=== PATIENT | female | born 1990 | race Asian ===

== ENCOUNTER → 2024-09-10 10:04 | Outpatient (REF) | payer OTHER, SELFPAY | LOC: PNTC 10:04 | PROVIDERS: ATTENDING PHYSICIAN Obstetrics & Gynecology | DX: Z31.83 Encounter for assisted reproductive fertility procedure cycle (principal) | CPT/HCPCS: 59025 ==

== ENCOUNTER 2024-09-14 18:30 | Inpatient (IN) | payer OTHER, SELFPAY ==
[2024-09-14 18:38] VITALS: BP 138/82; BMI 29.1
[2024-09-14 19:16] LABS: Hematocrit 36.8 % (37.0-47.0); Hemoglobin 12.4 g/dL (12.0-16.0); Mean Corp Hgb Conc. 33.7 g/dL (33.0-37.0); Mean Corpuscular Hgb 28.7 pg (27.0-31.0); Mean Corpuscular Volume 85.2 fL (81.0-99.0); Mean Platelet Volume 10.6 fL (7.4-10.4); Platelet Count 264 10^3/uL (130-400); Red Blood Cell Count 4.32 10^6/uL (4.20-5.40); Red Cell Dist. Width 14.6 % (11.5-14.5); White Blood Cell Count 8.1 10^3/uL (4.8-10.8)
[2024-09-14] MEDS: ZITHROMAX INFUSION 250 IV (19:39)
[2024-09-14] MEDS: ANCEF 10 IV (19:39)
[2024-09-14] MEDS: BICITRA 30 ML PO (19:39)
[2024-09-14] MEDS: LR 1000 IV (19:39)
[2024-09-14] MEDS: TYLENOL 1000 MG PO (19:39)
[2024-09-14] MEDS: TORADOL 15 MG IV (22:52)
[2024-09-15] MEDS: TORADOL 15 MG IV ×4 (04:55→23:13)
[2024-09-15 05:19] LABS: Hematocrit 35.7 % (37.0-47.0); Hemoglobin 11.8 g/dL (12.0-16.0); Mean Corp Hgb Conc. 33.1 g/dL (33.0-37.0); Mean Corpuscular Hgb 28.9 pg (27.0-31.0); Mean Corpuscular Volume 87.5 fL (81.0-99.0); Mean Platelet Volume 10.6 fL (7.4-10.4); Platelet Count 234 10^3/uL (130-400); Red Blood Cell Count 4.08 10^6/uL (4.20-5.40); Red Cell Dist. Width 14.6 % (11.5-14.5); White Blood Cell Count 13.4 10^3/uL (4.8-10.8)
[2024-09-15] MEDS: PRENATAL PLUS 1 TABLET PO (08:46)
--- NOTE | 2024-09-15 15:01 | W.PN.ANS.POP ---
Anesthesia Post Operative
- Anesthesia Post Op Note
Vital Signs Stable-See Nursing Note: Yes
Airway Patent: Yes
Adequate Pain Control: Yes
Change in Mental Status: No
Current Postoperative Nausea & Vomiting: No
Anesthesia Complications: No
General Anesthetic Recall: No
Unplanned Admission: No
Post Op Hydration Adequate: Yes
[2024-09-16] MEDS: MOTRIN 600 MG PO (05:02)
[2024-09-16] MEDS: TYLENOL 650 MG PO (05:03)
[2024-09-16] MEDS: SENOKOT-S 1 TABLET PO (07:54)
[2024-09-16] MEDS: PRENATAL PLUS 1 TABLET PO (07:54)
== END 2024-09-16 13:35 | disposition home or self-care (01) | DRG 788 ==
LOC: LDRP 18:30
PROVIDERS: ADMITTING PHYSICIAN Obstetrics & Gynecology
PROC: 10D00Z1 Extraction of Products of Conception, Low, Open Approach (ICD-10-PCS; 2024-09-14)
DX: O34.211 Maternal care for low transverse scar from previous cesarean delivery (principal); N85.8 Other specified noninflammatory disorders of uterus; Z37.0 Single live birth; Z3A.37 37 weeks gestation of pregnancy
CPT/HCPCS: 85027; 86780; 86850; 86900; 86901